=== PATIENT | male | born 1985 | race African-American/Black ===

== ENCOUNTER 2017-06-03 10:14 | Emergency (ER) | payer OTHER | END 2017-06-03 10:34 | disposition left against medical advice (07) | LOC: EMS 10:15 | DX: G93.40 Encephalopathy, unspecified (principal); R41.82 Altered mental status, unspecified; F17.210 Nicotine dependence, cigarettes, uncomplicated; F11.10 Opioid abuse, uncomplicated | CPT/HCPCS: 99281; 99283 ==

== ENCOUNTER 2023-09-19 14:03 | Emergency (ER) | payer OTHER ==
[~2023-09-19] VITALS: Ht 180.3 cm; Wt 65.9 kg
[2023-09-19 14:11] VITALS: BP 98/57; PULSE 108; RESP 18; TEMP 97.9
== END 2023-09-19 17:47 | disposition left against medical advice (07) ==
LOC: EMS 14:08
DX: Z53.21 Procedure and treatment not carried out due to patient leaving prior to being seen by health care provider (principal)

== ENCOUNTER 2025-01-19 00:34 | Emergency (ER) | payer OTHER ==
[~2025-01-19] VITALS: Ht 177.8 cm; Wt 65.9 kg
[2025-01-19 01:00] VITALS: BP 119/69; PULSE 89; RESP 16; TEMP 97.8; O2SAT 100
[2025-01-19] MEDS ORDERED: SULF1TAB42 PO (01:07)
[2025-01-19] MEDS ORDERED: CEPH-558 PO (01:07)
[2025-01-19] MEDS: LIDOCAINE/PF 1% 2 ML VIAL IM ONE (01:29)
[2025-01-19] MEDS: CefTRIAXone SODIUM 1 GM/VIAL IM ONE (01:29)
[2025-01-19] MEDS: HYDROCODONE/ACETAMINOPHEN 5-325 MG TABLET PO ONE (01:30)
== END 2025-01-19 02:28 | disposition home or self-care (01) ==
LOC: EMS 00:36
DX: L03.113 Cellulitis of right upper limb (principal); F17.210 Nicotine dependence, cigarettes, uncomplicated; Z89.612 Acquired absence of left leg above knee; Z79.899 Other long term (current) drug therapy
CPT/HCPCS: 99283; 96372; J0696; J3490